=== PATIENT | female | born 1995 | race Caucasian/White ===

== ENCOUNTER 2021-01-28 12:14 | Outpatient (REF) | payer MEDICAID, SELFPAY ==
--- NOTE | 2021-01-28 11:30 | PAPFT_PTH ---
PATIENT: Caroline Maher LOC: [facility] U#:[id number] AGE/SX: 25/F ROOM: RE01/28/[address]: Diane Mg NP : 1995 BED: DIS: 01/28/2021 SPEC #: [id number] RECD: 01/28/21 12:37 STATUS: ENRRIQUE REKristin #: [id number] PARKER: 01/28/21 11:[address]: Diane Mg NP DEPT: ON LICENSE OF [facility] Cytology RECD BY: Delmi Cali ENTERED: 01/28/21 12:38 SP TYPE: PAPFT OTHR DR: Renan Hair Tissues: 1 - CX/ENDOCX FOR PAP SMEARS Procedures: PAP THIN PREP/[facility] Screening Comments: [id number]
== END 2021-01-28 12:15 | disposition home or self-care (01) ==
LOC: LBN 12:14
PROVIDERS: PCP Family Medicine; Visit Provider Nurse Practitioner Women's Health
DX: Z12.4 Encounter for screening for malignant neoplasm of cervix (principal)
CPT/HCPCS: 88142

== ENCOUNTER 2021-08-27 02:05 | Outpatient (CLI) | payer MEDICAID, SELFPAY ==
--- NOTE | 2021-08-27 07:35 | DI.US_ITS ---
Exam(s) US PELVIS EXAM: US PELVIS CLINICAL HISTORY: Pelvic pain,R10.2. TECHNIQUE: Transabdominal pelvic ultrasound was performed using standard protocol. Patient elected to forego the transvaginal portion of the examination. COMPARISON: No previous for comparison. FINDINGS: KIDNEYS: Kidneys are symmetric in size. No evidence of renal calculi. No evidence of hydronephrosis. No renal mass or cyst identified. UTERUS: Position: Anteverted. Size: 6.4 long by 2.9 AP by 4.2 transverse cm Endometrium: 0.3 cm. Normal for patient's menstrual status. Myometrium: Unremarkable. Cervix: Unremarkable. OVARIES: Right: 2 x 1.4 x 1.9 cm Cyst or mass: No suspicious abnormality. Left: 2.2 x 1.5 x 1.7 cm Cyst or mass: No suspicious abnormality. DOPPLER: Color: Color flow is difficult to obtain on this transabdominal image due to location of the ovaries. CUL-DE-SAC: Free fluid: None. Other: None. IMPRESSION: 1. Normal sonographic appearance of the kidneys. 2. Normal-appearing uterus with endometrial stripe within normal limits. 3. Unremarkable bilateral ovaries. DATA REPOSITORY:
== END 2021-08-27 02:25 ==
PROVIDERS: PCP Family Medicine; Visit Provider Nurse Practitioner Family
DX: R10.2 Pelvic and perineal pain (principal)
CPT/HCPCS: 76856

== ENCOUNTER 2021-08-27 03:00 | Outpatient (CLI) | payer MEDICAID, SELFPAY ==
[2021-08-27 09:14] LABS: TSH (W/Ref FT4) 1.12 uIU/mL (0.36-3.74)
[2021-08-27 17:46] LABS: Estradiol <12 pg/mL (See Note)
[2021-08-27 18:02] LABS: FSH >150.0 mIU/mL (See Note); Prolactin 6.5 ng/mL (See Table)
== END 2021-08-27 03:01 | disposition home or self-care (01) ==
LOC: LBO 03:00
PROVIDERS: Nurse Practitioner Family; Obstetrics & Gynecology; PCP Family Medicine
DX: N92.6 Irregular menstruation, unspecified (principal)
CPT/HCPCS: 36415; 82670; 83001; 84146; 84443

== ENCOUNTER 2021-10-01 01:44 | Outpatient (CLI) | payer MEDICAID, SELFPAY ==
[2021-10-01 21:52] LABS: Estradiol 276 pg/mL (See Note)
[2021-10-01 22:01] LABS: FSH 6.9 mIU/mL (See Note)
[2021-10-02 13:02] LABS: Antimullerian Hormone <0.03 ng/mL (0.89-9.9)
[2021-10-07 12:12] LABS: Result Summary NEGATIVE; Specimen WB Whole Blood
[2021-10-09 12:19] LABS: 21-Hydroxylase Abs Negative (Negative)
[2021-11-04 11:18] LABS: Chromosome Analysis(UVM) See Comments
== END 2021-10-01 01:45 | disposition home or self-care (01) ==
LOC: LBO 01:44
PROVIDERS: PCP Family Medicine
DX: E28.39 Other primary ovarian failure (principal)
CPT/HCPCS: 36415; 82670; 83001; 83519; 83520; 83891; 83892; 83894; 83896; 83897; 83898; 83912; 84443; 88230; 88262